=== PATIENT | female | born 1950 | race Two or more races ===

== ENCOUNTER 2017-08-14 10:39 | Outpatient (CLI) | payer OTHER | END 2017-08-14 11:04 | disposition home or self-care (01) | LOC: NUCLEAR 10:39 | DX: M54.5 Low back pain (principal) | CPT/HCPCS: 78306; A9503; 77080 ==

== ENCOUNTER 2018-12-11 14:46 | Outpatient (CLI) | payer OTHER | END 2018-12-11 14:49 | disposition home or self-care (01) | LOC: LAB 14:46 | DX: E03.8 Other specified hypothyroidism (principal); E78.2 Mixed hyperlipidemia; N95.1 Menopausal and female climacteric states; D50.8 Other iron deficiency anemias ==

== ENCOUNTER 2018-12-11 15:37 | Outpatient (CLI) | payer OTHER | END 2018-12-11 15:40 | disposition home or self-care (01) | LOC: MAMO-SONO 15:37 | DX: Z12.31 Encounter for screening mammogram for malignant neoplasm of breast (principal); Z87.898 Personal history of other specified conditions; N60.11 Diffuse cystic mastopathy of right breast; N60.12 Diffuse cystic mastopathy of left breast ==

== ENCOUNTER → 2018-12-11 | Outpatient (CLI) | payer OTHER | END | disposition home or self-care (01) | LOC: NUCLEAR 12-04 10:30 | DX: M81.0 Age-related osteoporosis without current pathological fracture (principal) ==

== ENCOUNTER → 2018-12-11 | Outpatient (CLI) | payer OTHER | END | disposition home or self-care (01) | LOC: RAD 501 15:15 | DX: M25.571 Pain in right ankle and joints of right foot (principal); M25.572 Pain in left ankle and joints of left foot ==

== ENCOUNTER 2018-12-26 10:06 | Outpatient (CLI) | payer OTHER | END 2018-12-26 10:15 | disposition home or self-care (01) | LOC: SONOGRAMA 10:06 | DX: D36.7 Benign neoplasm of other specified sites (principal); M72.2 Plantar fascial fibromatosis ==

== ENCOUNTER 2019-04-08 11:27 | Outpatient (CLI) | payer OTHER | END 2019-04-08 11:29 | disposition home or self-care (01) | LOC: RAD 11:27 | DX: M25.561 Pain in right knee (principal); M25.572 Pain in left ankle and joints of left foot ==

== ENCOUNTER 2020-06-09 14:02 | Outpatient (CLI) | payer OTHER | END 2020-06-09 14:06 | disposition home or self-care (01) | LOC: MAMO-SONO 14:02 | PROVIDERS: ATTEND Specialist | DX: Z12.31 Encounter for screening mammogram for malignant neoplasm of breast (principal); N60.11 Diffuse cystic mastopathy of right breast; N60.12 Diffuse cystic mastopathy of left breast ==

== ENCOUNTER → 2020-06-09 14:25 | Outpatient (CLI) | payer OTHER | END | disposition home or self-care (01) | LOC: LAB 07:55 | PROVIDERS: ATTEND Internal Medicine | DX: E03.8 Other specified hypothyroidism (principal); E55.9 Vitamin D deficiency, unspecified; E78.49 Other hyperlipidemia; M81.0 Age-related osteoporosis without current pathological fracture ==

== ENCOUNTER → 2020-06-10 16:19 | Outpatient (CLI) | payer OTHER | END | disposition home or self-care (01) | LOC: LAB 10:41 | PROVIDERS: ATTEND Internal Medicine | DX: E03.8 Other specified hypothyroidism (principal); E55.9 Vitamin D deficiency, unspecified; E78.49 Other hyperlipidemia; M81.0 Age-related osteoporosis without current pathological fracture; Z12.11 Encounter for screening for malignant neoplasm of colon; E11.9 Type 2 diabetes mellitus without complications; D68.8 Other specified coagulation defects ==

== ENCOUNTER 2021-02-21 13:39 | Outpatient (CLI) | payer OTHER | END 2021-02-21 13:54 | disposition home or self-care (01) | LOC: NUCLEAR 13:39 | PROVIDERS: ATTEND Specialist | DX: M85.80 Other specified disorders of bone density and structure, unspecified site (principal); M81.0 Age-related osteoporosis without current pathological fracture ==

== ENCOUNTER 2021-06-26 08:26 | Outpatient (CLI) | payer OTHER | END 2021-06-26 11:51 | disposition home or self-care (01) | LOC: SONOGRAMA 08:26 | PROVIDERS: ATTEND Pathology Anatomic Pathology & Clinical Pathology | DX: E07.89 Other specified disorders of thyroid (principal) ==

== ENCOUNTER → 2021-08-23 | Outpatient (CLI) | payer OTHER | END | disposition home or self-care (01) | LOC: MAMO-SONO 13:41 | PROVIDERS: ATTEND Specialist | DX: N60.12 Diffuse cystic mastopathy of left breast (principal); N60.49 Mammary duct ectasia of unspecified breast; N95.1 Menopausal and female climacteric states; Z12.31 Encounter for screening mammogram for malignant neoplasm of breast ==

== ENCOUNTER 2022-08-07 11:54 | Outpatient (CLI) | payer OTHER | END 2022-08-07 11:57 | disposition home or self-care (01) | LOC: RAD 11:54 | PROVIDERS: ATTEND Internal Medicine | DX: R05.9 Cough, unspecified (principal); R07.9 Chest pain, unspecified ==

== ENCOUNTER 2023-06-06 12:39 | Outpatient (CLI) | payer OTHER | END 2023-06-06 12:43 | disposition home or self-care (01) | LOC: MAMO-SONO 12:39 | PROVIDERS: ATTEND Specialist | DX: Z12.31 Encounter for screening mammogram for malignant neoplasm of breast (principal); N60.11 Diffuse cystic mastopathy of right breast; N60.12 Diffuse cystic mastopathy of left breast; R10.2 Pelvic and perineal pain ==

== ENCOUNTER 2025-06-30 11:46 | Outpatient (CLI) | payer OTHER | END 2025-06-30 11:47 | disposition home or self-care (01) | LOC: NUCLEAR 11:46 | PROVIDERS: ATTEND Specialist | DX: M81.0 Age-related osteoporosis without current pathological fracture (principal) ==

== ENCOUNTER → 2025-06-30 | Outpatient (CLI) | payer OTHER | END | disposition home or self-care (01) | LOC: MAMO-SONO 09:42 | PROVIDERS: ATTEND Specialist | DX: N60.49 Mammary duct ectasia of unspecified breast (principal); N60.29 Fibroadenosis of unspecified breast; Z12.31 Encounter for screening mammogram for malignant neoplasm of breast ==